=== PATIENT | male | born 1945 | race Caucasian/White ===

== ENCOUNTER 2017-01-03 10:58 | Day surgery (SDC) ==
[2017-01-03] MEDS ORDERED: KEFZOL 2 GM/D5W 50 ML ONE (11:15)
[2017-01-03] MEDS ORDERED: LR 1,000 ML ONE ×2 (11:15→15:47)
[2017-01-03] MEDS ORDERED: MARCAINE 0.25% PF/EPI 1:200,000 ONE ×3 (13:39→13:53)
[2017-01-03] MEDS ORDERED: NS 0 ML ONE (13:39)
[2017-01-03] MEDS ORDERED: HEPARIN ONE ×2 (13:39→13:48)
[2017-01-03] MEDS ORDERED: XYLOCAINE 1%/EPI 1:100,000 ONE (13:39)
[2017-01-03] MEDS ORDERED: NS 250 ML ONE (13:48)
[2017-01-03] MEDS ORDERED: DIPRIVAN 1% ONE (14:35)
[2017-01-03] MEDS ORDERED: FENTANYL ONE (14:35)
[2017-01-03] MEDS ORDERED: ZOFRAN IV PRN (14:46)
[2017-01-03] MEDS ORDERED: NORCO-7.5 PO PRN (14:46)
--- NOTE | 2017-01-03 15:14 | OPERATIVE NOTE ---
PROCEDURE DATE: 01/03/2017 PREOPERATIVE DIAGNOSIS: Lymphoma. POSTOPERATIVE DIAGNOSIS: Lymphoma. PROCEDURE: Insertion of [id number] with fluoroscopic and ultrasound guidance. SURGEON: Schuyler Mayer MD. ANESTHESIA: General. ESTIMATED BLOOD LOSS: 5 mL. COMPLICATIONS: None apparent. SPECIMENS: None. FINDINGS: The right internal jugular vein was visualized with the Site-Rite ultrasound. It was compressible and patent. The wire was visualized in the vein with ultrasound. The wire was also visualized to be in the right atrium with fluoroscopy and the catheter tip was positioned to the superior vena cava-right atrial junction with fluoroscopy. TECHNIQUE: He was brought to the operating room and placed supine on the table. General anesthesia was induced. He was prepped and draped in usual sterile fashion. Marcaine 0.25% was used to anesthetize the skin below the right clavicle where an incision was made with a knife. This incision was carried down with cautery through the subcutaneous fat. A pocket was created anterior to the chest wall fascia with cautery and blunt finger dissection. The right internal jugular vein was visualized with the Site-Rite ultrasound. The skin over the vein was anesthetized with Marcaine. An 11 blade was used to make a 1 cm incision in the skin. The vein was accessed with a needle under ultrasound guidance. However the wire did not pass easily the 1st time. I removed the wire and needle. On the 2nd attempt the wire did pass, however with fluoroscopy the wire was traversing out the subclavian vein. Under fluoroscopic guidance I pulled the wire back and repositioned it down into the right atrium. The wire was fixed to the drape. I then tunneled the catheter subcutaneously from the lower incision out through the neck incision. The dilator and sheath were passed over the wire. The wire and dilator were removed. The catheter was passed into the sheath. The sheath was removed. The tip of the catheter was positioned to the appropriate junction under fluoroscopy. The catheter was cut to size and fixed to the port. The port was anchored to the chest wall fascia with 2-0 Surgipro at 2 o'clock, 6 o'clock, and 10 o'clock. The port silvia back blood and it was flushed with heparin and saline. The incisions were closed with interrupted subcutaneous 3-0 Polysorb and a running 4-0 subcuticular Monocryl and Steri-Strips. There were no apparent complications.
--- NOTE | 2017-01-03 15:40 | Diag Imaging Result Document ---
PROCEDURE NAME: CHEST-PORTABLE - 01/03/2017 PORTABLE CHEST: COMPARISON: 03/18/2014. FINDINGS: There is a right sided jugular line on the current exam. The tip overlies the right atrium. No pneumothorax. The heart is not enlarged. The vessels are not distended. No pleural effusions identified. Mild atelectasis in the lower lungs. IMPRESSION: No postprocedural pneumothorax.
[2017-01-03] MEDS ORDERED: ZOFRAN ONE (15:47)
[2017-01-03] MEDS ORDERED: DECADRON ONE (15:47)
[2017-01-03] MEDS ORDERED: XYLOCAINE-MPF 2% ONE (15:47)
[2017-01-03 16:06] VITALS: BP 137/75
== END 2017-01-03 16:05 | disposition home or self-care (01) ==
LOC: OR 10:58
PROVIDERS: ATTEND Surgery
DX: C85.90 Non-Hodgkin lymphoma, unspecified, unspecified site (principal)
CPT/HCPCS: 71010; 77001; C1788; J0690; J1100; J2405; J3010; J7050; J7120; S0020

== ENCOUNTER 2017-02-15 10:54 | Inpatient (IN) ==
--- NOTE | 2017-02-13 16:09 | EKG Report ---
Test Performed on : 02/13/2017 3:27:57 PM Test Reason : pat Blood Pressure : / mmHG Vent. Rate : 058 BPM Atrial Rate : 058 BPM P-R Int : 134 ms QRS Dur : 094 ms QT Int : 404 ms P-R-T Axes : 015 011 037 degrees QTc Int : 396 ms Sinus bradycardia. Otherwise normal ECG When compared with ECG of 18-MAR-2014 05:25, premature ventricular complexes. are no longer present Confirmed by My CURIEL, Gumaro De León ([id number]) on 02/13/2017 8:11:58 PM
[2017-02-15] MEDS ORDERED: LR 1,000 ML ONE ×2 (11:40→15:03)
[2017-02-15] MEDS ORDERED: KEFZOL 1 GM/D5W 1 GM/50 ML IVPB ONE (11:41)
[2017-02-15] MEDS ORDERED: SODIUM CHLORIDE 0.9% ONE (12:15)
[2017-02-15] MEDS ORDERED: NUPERCAINAL ONE (12:15)
[2017-02-15] MEDS ORDERED: MARCAINE 0.25% PF/EPI 1:200,000 ONE (12:15)
[2017-02-15] MEDS ORDERED: EXPAREL 1.3% ONE (12:16)
[2017-02-15] MEDS: DILAUDID ONE ×6 (12:23→16:34)
[2017-02-15] MEDS ORDERED: DIPRIVAN 1% ONE (14:52)
[2017-02-15] MEDS ORDERED: DECADRON ONE (15:03)
[2017-02-15] MEDS ORDERED: XYLOCAINE-MPF 2% ONE (15:03)
[2017-02-15] MEDS ORDERED: QUELICIN (DOSE) ONE (15:03)
[2017-02-15] MEDS ORDERED: EPHEDRINE ONE (15:03)
[2017-02-15] MEDS ORDERED: ZOFRAN ONE ×2 (15:03→16:43)
[2017-02-15] MEDS ORDERED: DILAUDID ONE (15:11)
[2017-02-15] MEDS ORDERED: NORCO-10 ONE (15:40)
[2017-02-15] MEDS ORDERED: OFIRMEV 1000 MG/ISOTONIC SOLN 1,000 MG/100 ML BOTTLE ONE (15:57)
[2017-02-15] MEDS ORDERED: LR 500 ML ONE (16:55)
[2017-02-15] MEDS ORDERED: NS 1,000 ML ONE (17:27)
--- NOTE | 2017-02-15 17:35 | OPERATIVE NOTE ---
PROCEDURE DATE: 02/15/2017 PREOPERATIVE DIAGNOSIS: 1. Internal and external bleeding hemorrhoids. 2. Lymphoma. POSTOPERATIVE DIAGNOSIS: 1. Internal and external bleeding hemorrhoids. 2. Lymphoma. PROCEDURE: Complex hemorrhoidectomy. SURGEON: Schuyler Mayer MD. ANESTHESIA: General. ESTIMATED BLOOD LOSS: 25 mL. COMPLICATIONS: None apparent. SPECIMENS: Hemorrhoids. FINDINGS: The patient had nearly circumferential internal and external hemorrhoids. They were bulky and grade 3-4. There were no acute thrombosed hemorrhoids. There were several areas of ulcerated perianal skin. A distal rectal mass revealed no masses. There were 2 bands on internal hemorrhoid columns. They were near the dentate line. TECHNIQUE: The patient was brought to the operating room. General anesthesia was induced. He was placed in the prone nae-knife position. He was prepped and draped in usual sterile fashion. 0.25% Marcaine with epinephrine was used to anesthetize the skin and subcutaneous tissue on both sides of the anus. Exparel was also injected in the same fashion. A digital rectal exam was performed. The anal retractor was placed. Beginning on the left superior side, 3-0 chromic was used to ligate the internal hemorrhoid column proximally and then a knife and Metzenbaum scissors were used to excise the external and internal hemorrhoid columns off of the underlying sphincter muscles, being careful to preserve the sphincter muscles as we worked. Cautery was used for hemostasis. The wound was closed with a running 3-0 chromic. Then moving more inferiorly on the left side, the hemorrhoid column was then ligated, excised and closed in the same fashion. The band on the internal hemorrhoid came off during our procedure, but the tissue was already ischemic. Then moving to the right side, there were 2 more columns involving internal and external hemorrhoids that were ligated, excised and closed in the same fashion. At the conclusion, the patient has significant improvement in the amount of friable-appearing hemorrhoid tissue had been removed. There were a few soft external nonthrombosed hemorrhoids. He did not appear to have any stenosis of the anus at the conclusion. A foam plug was placed that was covered and dibucaine ointment. There were no apparent complications. He was awakened in stable condition. cc: Schuyler Mayer MD
[2017-02-15] MEDS ORDERED: NORCO-10 PO PRN (18:23)
[2017-02-15] MEDS ORDERED: DILAUDID IV PRN (18:23)
[2017-02-15] MEDS ORDERED: PHENERGAN PO PRN (18:59)
[2017-02-15] MEDS ORDERED: PROTONIX PO PRN (18:59)
[2017-02-15] MEDS ORDERED: PRILOSEC PO PRN (18:59)
[2017-02-15] MEDS ORDERED: ZOFRAN IV PRN (19:02)
[2017-02-15] MEDS ORDERED: SODIUM CHLORIDE 0.9% 0 ML ONE (19:58)
[2017-02-16] MEDS: PERIDEX MT SCH ×4 (02:31→23:13)
[2017-02-16] MEDS: LOPID PO SCH ×4 (02:31→23:13)
[2017-02-16] MEDS: NS 1,000 ML IV SCH ×2 (02:32→06:43)
[2017-02-16] MEDS: TOPROL XL PO SCH (08:08)
[2017-02-16] MEDS: PROSCAR PO SCH (08:08)
[2017-02-16] MEDS ORDERED: FLOMAX PO SCH (09:00)
--- NOTE | 2017-02-16 17:46 | CONSULTATION ---
DATE OF CONSULTATION: 02/16/2017 ATTENDING/REFERRING PHYSICIAN: Schuyler Mayer MD HISTORY OF PRESENT ILLNESS: This 71-year-old male is 1 day status post complex hemorrhoidectomy. He was unable to void. The patient states this happened after his cholecystectomy and had to have a catheter for several days. He is currently on Flomax at 0.4 mg a day and Proscar 5 mg a day. He has had no previous urologic surgery. PAST MEDICAL HISTORY: Elevated cholesterol, gout, hypertension chronic renal insufficiency. History of diverticulitis, lymphoma and history of skin cancer. He is currently undergoing chemo for lymphoma. PAST SURGICAL HISTORY: Hemorrhoidectomy, cholecystectomy. SOCIAL HISTORY: No tobacco or alcohol use. REVIEW OF SYSTEMS: No known drug allergies. He states usually he feels well. He denies any problems with diabetes, strokes, or seizures. PHYSICAL EXAMINATION: General: A mildly obese, age apparent, normally developed, white male, oriented in all ways and cooperative. HEENT: Normal for age. Lungs: Clear. Cardiovascular: Regular rate and rhythm. Abdomen: Protuberant, soft, nontender. No hepatosplenomegaly or masses. Normal bowel sounds. Genitourinary: Partially circumcised male with Zimmer catheter in place draining well. Both testes are down and palpably normal. Rectal: Deferred secondary to his recent hemorrhoid surgery. Extremities: No clubbing, cyanosis, or edema. Neurologic: No focal deficits. IMPRESSION: 1. History of enlarged prostate with obstructive voiding. 2. Urinary retention after hemorrhoidectomy with previous history of postoperative urinary retention. 3. Lymphoma. RECOMMENDATIONS: 1. Increase Flomax to 0.4 mg b.i.d. 2. Continue Proscar. 3. Keep Zimmer catheter at least 72 hours. This hopefully will allow the sphincter to relax. 4. We will do voiding trial on Monday if he is still hospitalized or he can come to our office and we will remove the catheter Monday morning and he will return Monday afternoon for postvoid scan. Thank you for this consultation. cc: MD Schuyler Mariee MD
[2017-02-16] MEDS: FLOMAX PO SCH ×2 (19:49→23:13)
[2017-02-17 03:54] VITALS: BP 124/67
[2017-02-17] MEDS: NS 1,000 ML IV SCH ×2 (05:18→05:33)
--- NOTE | 2017-02-17 07:21 | PROGRESS NOTE ---
DATE: 02/17/2017 SUBJECTIVE: The patient was admitted after surgery yesterday evening for really severe pain and nausea. He is also having difficulty urinating. Overnight he refused an in and out catheter several times. However this morning, around 10:30 he finally relented and over 500 mL was emptied. As of this morning he is not hurting as much. His nausea is improving. He is starting to drink a few liquids. OBJECTIVE: He is afebrile.Vital Signs: Stable. General: He is alert and oriented x4. No acute distress. CV: Regular rate and rhythm. Respiratory: No work of breathing. Rectal: Deferred. ASSESSMENT AND PLAN: A 71-year-old male, status post complex hemorrhoidectomy in the setting of lymphoma. He does have a history of urinary retention after cholecystectomy and an enlarged prostate. If he has trouble voiding later today we will place a catheter and leave it into a bag and consult his urologist Dr. Edgar. We will watch him this evening if he has continued trouble with urinary retention and make sure his oral intake improves and his pain and nausea are manageable. cc: Schuyler Mayer MD
--- NOTE | 2017-02-17 07:25 | PROGRESS NOTE ---
DATE: 02/17/2017 SUBJECTIVE: The patient is feeling much better this morning. He did have the catheter placed to a gravity bag yesterday afternoon after unsuccessful voiding. Dr. Edgar saw him and is going to recommend leaving it in over the weekend and he is to have a voiding trial next Monday in his office. He is already on Flomax and Proscar. The patient denies any pain. He has not had any pain medicine in over 24 hours. He is tolerating liquids without vomiting. OBJECTIVE: Vital Signs: He is afebrile. Vital signs are stable. General: Alert orient x4. No acute distress. CV: Regular rate and rhythm. Respiratory: No work of breathing. Rectal: Deferred. ASSESSMENT AND PLAN: A 71-year-old male, status post complex hemorrhoidectomy in the setting of lymphoma, also complicated by postoperative urinary retention. His Zimmer catheter is in and he will go home with it. He is to follow up with Dr. Edgar next Monday. He will follow up with me in 2 weeks. He can eat a soft diet as tolerated and should stay on his home Metamucil. He will use warm sitz baths for comfort. cc: Schuyler Mayer MD
[2017-02-17] MEDS: PROSCAR PO SCH (07:58)
[2017-02-17] MEDS: PERIDEX MT SCH (07:59)
[2017-02-17] MEDS: LOPID PO SCH (07:59)
[2017-02-17] MEDS: FLOMAX PO SCH (07:59)
[2017-02-17] MEDS: TOPROL XL PO SCH (08:00)
== END 2017-02-17 09:27 | disposition home or self-care (01) ==
LOC: OR 10:54 → 4N 10:54 → DIRADM 10:55 → UNDODISOB 02-17 09:26 → OR 02-17 09:26
PROVIDERS: ADMIT Surgery; ATTEND Surgery
PROC: [UNRECOGNIZED PROCEDURE] (2017-02-15 13:08)